=== PATIENT | male | born 1960 | race Caucasian/White ===

== ENCOUNTER 2018-01-24 11:26 | Inpatient (IN) | payer BC ==
[~2018-01-24] VITALS: Ht 177.8 cm; Wt 105.6 kg
--- NOTE | ~2018-01-24 | EKG ---
[address] [place] [address] ELECTROCARDIOGRAM REPORT Name: NEDA LYNN Room #: 210-P ADM IN M.R.#: [id number] Admission: 01/24/18 Attend Phys: Blanche Engle Discharge: Date of : 60 Report #: [id number] THIS REPORT FOR: //name// [facility] Test Date: 2018-01-24 Test Time: 15:20:22 Pat Name: NEDA LYNN Department: Room: 210 P Gender: M Refuse Collector: Oscar RANKIN : 1960 Requested By: Norman Harrell Order Number: [id number] MD: Norman Harrell Measurements Intervals [place] Rate: 60 P: 22 IA: 233 QRS: 31 QRSD: 96 T: 35 QT: 400 QTc: 400 Interpretive Statements Sinus rhythm Prolonged IA interval Abnormal R-wave progression, early transition Compared to ECG 01/24/2018 11:24:34 high lateral injury pattern no longer present Electronically Signed On 01-25-2018 10:53:23 CDT by Norman Harrell [email or web address] <ELECTRONICALLY SIGNED> By: Norman Harrell MD, [facility] 01/25/18 1053 1520 1520 Norman Harrell MD, [facility] /EPI
--- NOTE | ~2018-01-24 | EKG ---
[address] [place] [address] ELECTROCARDIOGRAM REPORT Name: NEDA LYNN Room #: 210-P ADM IN M.R.#: [id number] Admission: 01/24/18 Attend Phys: Blanche Engle Discharge: Date of : 60 Report #: [id number] THIS REPORT FOR: //name// [facility] ED Test Date: 2018-01-24 Test Time: 11:24:34 Pat Name: NEDA LYNN Department: Room: 210 Gender: M Tile And Marble Installer: MZOOK : 1960 Requested By: Halina Rodríguez Order Number: [id number] MD: Norman Harrell Measurements Intervals [place] Rate: 70 P: 19 MA: 216 QRS: 4 QRSD: 101 T: -28 QT: 394 QTc: 426 Interpretive Statements Sinus rhythm Prolonged MA interval Abnormal R-wave progression, early transition High lateral myocardial infarction, acute No previous ECG available for comparison Electronically Signed On 01-24-2018 14:58:23 CDT by Norman Harrell [email or web address] <ELECTRONICALLY SIGNED> By: Norman Harrell MD, [facility] 01/24/18 1458 1124 1124 Norman Harrell MD, [facility] /EPI
--- NOTE | ~2018-01-24 | CATHLAB ---
[facility] [address] [place] [address] INVASIVE PROCEDURE REPORT Name: LEAHNEDA Room #: 210-P ADM IN M.R.#: [id number] Admission: 01/24/18 Attend Phys: Blanche Rae Discharge: Date of : 60 Date of Service: 01/24/18 1647 Report #: [id number] THIS REPORT FOR: //name// APPROVED REPORT Study performed: 01/24/2018 11:47:58 Patient Details Patient Status: ED Room #: The patient is a 57 year-old male Event Personnel Norman Harrell Ballast Regulator Operator, Amor Yeung RN, Neda Santamaria RN RN, Andi Chavez Hand Ornament Maker, Zenaida Samuel Monitor Procedures Performed Left Heart Cath w/LT VGram [id number] LHCLV NAEEM Revasc AMI Total/Sub Single OM C9606 AMIREVSING Indication STEMI (>0 to less than or equal to 6 hours), Chest pain Risk Factors Chronic Lung DiseaseHypercholesterolemia, Tobacco History () Procedure Narrative The both groins was infiltrated with 1% Lidocaine subcutaneous anesthesia. A PINNACLE 6FR Sheath #[id number] sheath was inserted into the RFA^. Coronary angiography was performed using coronary diagnostic catheters. The right coronary system was accessed and visualized with a JR46FR 3DRC #[id number] catheter. The left coronary system was accessed and visualized with a JL4 catheter. The left ventricle was accessed and visualized with a PIGTAIL catheter. Left ventricular/Aortic Valve gradient assessed via catheter pullback. Left ventriculogram was performed in 30 degree projection. Closure device was deployed with a 6 Fr MYNXGRIP 6/7F #[id number]. The patient tolerated the procedure well and there were no complications associated with the procedure. There was no hematoma. Intraoperative Conscious Sedation Sedation start time: 12.07 Case end Time: 14.12 Fentanyl 100 mcg Versed 2 mg [facility] [place] [address] INVASIVE PROCEDURE REPORT Name: NEDA LYNN Room #: 210-P [facility] IN .R.#: [id number] Admission: 01/24/18 Attend Phys: Blanche Rae Discharge: Date of : 60 Date of Service: 01/24/18 1647 Report #: [id number] Fluoro Time: 22.41 minutes Dose: DAP 06321.80 cGycm2 3300 mGy Contrast Type and Amount: Visipaque 490 ml Coronary Angiography The patient's coronary anatomy is right dominant. Diagnostic Cath Left Main Normal left main LAD The LAD was a large vessel that extended to the apex. The proximal LAD exhibited an ectatic, aneurysmal segment following which there was a 60-70% stenosis. Just after the first septal perforating branch was a 30-40% stenosis. Diagonal 1 The first diagonal branch was moderately large with a 60-70% ostial stenosis. The diagonal branch had its origin near the distal margin of the aneurysmal LAD segment. Diagonal 2 The second diagonal branch was moderate to small and angiographically normal Circumflex The mid circumflex was occluded in its midportion Right Coronary The right coronary was dominant. There is a small proximal aneurysm. The mid LAD exhibited variable 30-40% plaquing R PDA The posterior descending exhibited mild 20-30% plaquing RPLV The posterior lateral branch was large in caliber with a 60-70% ostial stenosis Left Ventriculography The left ventricle is normal in size with normal contractility. The left ventricular ejection fraction is estimated to be 50-55%. Left ventricular wall motion abnormalities are not present. There is no mitral insufficiency. IVUS A Guide Catheter was used to engage the LAUNCHER 6FR EBU 4 #[id number] ostium. A Luge Wire .014 x 182CM #[id number] was used. Hemodynamics The aortic pressure is 131/67 mmHg with a mean of 91 mmHg. The left ventricular pressure is 111/17 mmHg with a mean of mmHg. The left ventricular end diastolic pressure is 17 mmHg. PCI Technique Lesion Anticoagulation was achieved with Heparin, Integrilin. Patient was preloaded with Brillinta. Percutaneous coronary intervention was performed on the mid circumflex extending into first obtuse marginal [address] [address] INVASIVE PROCEDURE REPORT Name: NEDA LYNN Room #: 210-P ADM IN M.R.#: [id number] Admission: 01/24/18 Attend Phys: Blanche Rae Discharge: Date of : 60 Date of Service: 01/24/18 1647 Report #: [id number] branch segment. The lesion stenosis prior to intervention was 100% with MARGARET 0 flow. A LAUNCHER 6FR EBU 4 #[id number] Guide Catheter was used to engage the left main ostium. A Luge Wire .014 x 182CM #[id number] Interventional Guidewire was used to cross the lesion. BALLOON DILATION A Balloon catheter Euphora RX 3.0 x 15 #[id number] was inserted and inflated up to 8.00atm for 30seconds. Repeat angiography revealed the following post-dilatation results: long, diffuse stenosis of OM1, very high grade mid circumflex stenosis. Additional Inflation: 8.00atm for 21seconds. Additional Inflation: 8.00atm for 28seconds. STENT DEPLOYMENT A drug-eluting stent RESOLUTE RX 3.0 X 26 #[id number] was inserted and inflated up to 14atm for 30seconds. Repeat angiography revealed the following post-stent deployment results: 0% residual, restored flow. POST STENT DEPLOYMENT BALLOON DILATION A Balloon catheter TREK NC RX 3.5 X 12 #[id number] was inserted and inflated up to 20atm for 30seconds. Repeat angiography revealed the following post-dilatation results: 0% residual. Additional Inflation: 12atm for 31seconds. Final angiography reveals 0 % stenosis with MARGARET 3 flow. PCI Technique Lesion A LAUNCHER 6FR EBU 4 #[id number] Guide Catheter was used to engage the ostium. A Luge Wire .014 x 182CM #[id number] Interventional Guidewire was used to cross the lesion. STENT DEPLOYMENT A drug-eluting stent RESOLUTE RX 3.5 X 15 #[id number] was inserted and inflated up to 14atm for 25seconds. POST STENT DEPLOYMENT BALLOON DILATION A Balloon catheter TREK NC RX 3.5 X 8 #[id number] was inserted and inflated up to 18atm for 26seconds. Additional Inflation: 18atm for 19seconds. Conclusion 1. Normal global systolic function. EF 55%. No mitral insufficiency 2. Normal left main 3. 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 Occlusion of mid circumflex treated with 3.5 x 15 Resolute, then extending in sequence into large OM1 3.0 x 26mm Resolute, both post-dilated with 3.5mm NC bolloon 5. RCA dominant. 30-40% mid plaquing. PV branch with osteal 60-70% stenosis. Mild PDA osteal disease Recommendations Smoking Cessation Cardiac Rehabilitation Referral Aggressive Medical Therapy Medications Administered Aspirin (any) Beta Jeison (any) Statin (any) Ticagrelor Cardiac Rehabilitation Referral Smoking Cessation <ELECTRONICALLY SIGNED> By: Norman Harrell MD, FACC 01/24/181646 46 46 Norman Harrell MD, FACC /INF
--- NOTE | ~2018-01-24 | EKG ---
[address] [place] [address] ELECTROCARDIOGRAM REPORT Name: NEDA LYNN Room #: 210-P ADM IN M.R.#: [id number] Admission: 01/24/18 Attend Phys: Blanche Engle Discharge: Date of : 60 Report #: [id number] THIS REPORT FOR: //name// [facility] Test Date: 2018-01-25 Test Time: 06:45:31 Pat Name: NEDA LYNN Department: Room: 210 P Gender: M Windows Server Administrator: YG : 1960 Requested By: Dilia Jim Order Number: [id number] MD: Norman Harrell Measurements Intervals [place] Rate: 67 P: 28 MA: 211 QRS: 21 QRSD: 92 T: 59 QT: 407 QTc: 430 Interpretive Statements Sinus rhythm Prolonged MA interval Abnormal R-wave progression, early transition Compared to ECG 01/24/2018 11:24:34 No significant change was found Electronically Signed On 01-25-2018 11:00:12 CDT by Norman Harrell [email or web address] <ELECTRONICALLY SIGNED> By: Norman Harrell MD, [facility] 01/25/18 1100 Norman Harrell MD, [facility] /EPI
--- NOTE | ~2018-01-24 | 2DMMODE ---
[facility] [address] [address] 2 D/M-MODE ECHOCARDIOGRAM Name: NEDA LYNN Room #: 210-P ADM IN M.R.#: [id number] Admission: 01/24/18 Attend Phys: Blanche Rae Discharge: Date of : 60 Date of Service: 01/25/18 1305 Report #: [id number] THIS REPORT FOR: //name// APPROVED REPORT Study performed: 01/25/2018 11:03:42 EXAM: Comprehensive 2D, Doppler, and color-flow Echocardiogram Patient Location: Bedside Room #: 210 Status: on-call BSA: 2.26 HR: 67 bpm BP: 122/84 mmHg Rhythm: NSR Other Information Study Quality: Good Risk Factors: Cardiac Risk Factors: Smoking, Hyperlipidemia Indications CAD STEMI 2D Dimensions LVEF(%): 53.60 (>50%) IVSd: 8.51 (7-11mm) LVOT Diam: 21.00 (18-24mm) LVDd: 48.06 mm PWd: 9.60 (7-11mm) Ascending Ao: 32.60 (22-36mm) LVDs: 34.76 (25-40mm) Aortic Root: 27.16 mm LV Single Plane 4CH: 50.77 % LV Single Plane 2CH: 52.30 % Bey's LVEF: 51.53 % Biplane EF: 52.7 % Volumes Left Atrial Volume (Systole) Single Plane 4CH: 33.41 mL Single Plane 2CH: 40.10 mL LA ESV Index: 18.00 mL/m2 Aortic Valve AoV Peak Omar.: 1.49 m/s [facility] [address] [address] 2 D/M-MODE ECHOCARDIOGRAM Name: NEDA LYNN Room #: 210-P [facility] IN ..#: [id number] Admission: 01/24/18 Attend Phys: Blanche Rae Discharge: Date of : 60 Date of Service: 01/25/18 1305 Report #: [id number] AO Peak Gr.: 8.82 mmHg LVOT Max P.58 mmHg LVOT Max V: 0.80 m/s HILARY Vmax: 1.83 cm2 Mitral Valve E/A Ratio: 1.1 MV Decel. Time: 202.01 ms MV E Max Omar.: 0.77 m/s MV A Omar.: 0.67 m/s MV PHT: 58.58 ms IVRT: 64.59 ms Pulmonary Valve PV Peak Omar.: 0.84 m/s PV Peak Gr.: 2.87 mmHg Pulmonary Vein P Vein S: 0.52 m/s P Vein A: 0.20 m/s P Vein D: 0.58 m/s P Vein A Dur.: 114.2 msec P Vein S/D Ratio: 0.90 Tricuspid Valve RAP Estimate: 7.00 mmHg Left Ventricle The left ventricle is normal size. There is normal left ventricular wall thickness. Left ventricular systolic function is normal. Minimal lateral wall hypokinesis LVEF is 60%. Grade II - pseudonormal filling dynamics. Right Ventricle The right ventricle is normal size. The right ventricular systolic function is normal. Atria The left atrium size is normal. The right atrium size is normal. Aortic Valve The aortic valve is mildly calcified No aortic regurgitation is present. There is no aortic valvular stenosis. Mitral Valve The mitral valve is normal in structure. Trace mitral regurgitation. No evidence of mitral valve stenosis. Tricuspid Valve [facility] [address] [place] [address] 2 D/M-MODE ECHOCARDIOGRAM Name: NEDA LYNN Room #: 210-P [facility] IN M.R.#: [id number] Admission: 01/24/18 Attend Phys: Blanche Rae Discharge: Date of : 60 Date of Service: 01/25/18 1305 Report #: [id number] The tricuspid valve is normal in structure. There is no tricuspid valve regurgitation noted. Pulmonic Valve The pulmonary valve is normal in structure. There is no pulmonic valvular regurgitation. Great Vessels The aortic root is normal in size. IVC is normal in size and collapses >50% with inspiration. Pericardium There is no pericardial effusion. <Conclusion> Left ventricular systolic function is normal. Minimal lateral wall hypokinesis LVEF is 60%. Grade II - pseudonormal filling dynamics. The aortic valve is mildly calcified. No aortic regurgitation or stenosis The mitral valve is normal in structure. Trace mitral regurgitation. Pulmonary artery pressure could not be reliably ascertained There is no pericardial effusion. <ELECTRONICALLY SIGNED> By: Norman Harrell MD, [facility] 01/25/18 1305 1305 1305 Norman Harrell MD, FAC /INF
--- NOTE | ~2018-01-24 | EKG ---
[place] [address] [address] [facility] [place] [address] ELECTROCARDIOGRAM REPORT Name: NEDA LYNN Room #: 210- DIS IN M.R.#: [id number] Admission: 01/24/18 Attend Phys: Blanche Engle Discharge: 01/26/18 Date of : 60 Report #: [id number] THIS REPORT FOR: //name// [facility] Test Date: 2018-01-25 Test Time: 12:03:47 Pat Name: NEDA LYNN Department: Room: 210 Gender: M Entry Rep: YG : 1960 Requested By: Norman Harrell Order Number: [id number] MD: Norman Harrell Measurements Intervals [place] Rate: 75 P: 25 MA: 210 QRS: 28 QRSD: 91 T: 87 QT: 384 QTc: 429 Interpretive Statements Sinus rhythm Posterior infarct, old Compared to ECG 01/25/2018 06:45:31 No significant change was found Electronically Signed On 01-26-2018 13:48:00 CDT by Norman Harrell [email or web address] <ELECTRONICALLY SIGNED> By: Norman Harrell MD, [facility] 01/26/18 1348 1203 120 Norman Harrell MD, [facility] /EPI
[2018-01-24 11:27] VITALS: BP 116/74
[2018-01-24 11:46] LABS: ABSOLUTE NEUTROPHILS 10.4 thou/uL (1.4-8.2); BASOPHILS 0.5 % (0.0-2.0); EOSINOPHILS 0.8 % (0.0-3.0); HEMATOCRIT 51.2 % (42.0-52.0); LYMPHOCYTES 11.9 % (24.0-44.0); MCH 29.5 pg (26.0-34.0); MCHC 35.2 g/dL (28.0-37.0); MCV 83.6 fL (80.0-100.0); PLATELET COUNT 149 thou/uL (150-400); POLYS 83.8 % (36.0-66.0); RBC 6.12 mil/uL (4.50-6.00); RDW 13.5 % (10.5-14.5); WBC 12.4 thou/uL (4.0-11.0)
[2018-01-24 11:54] LABS: CALCIUM 9.2 mg/dL (8.5-10.1); CREATININE 1.2 mg/dL (0.7-1.3)
[2018-01-24 12:02] VITALS: BP 115/70
[2018-01-24 12:04] LABS: ALBUMIN 4.1 g/dL (3.4-5.0); TOTAL BILIRUBIN 0.6 mg/dL (<0.1-1.0); TOTAL PROTEIN 7.6 g/dL (6.4-8.2); TROPONIN-I 0.06 ng/mL (<0.06)
[2018-01-24 21:10] VITALS: BP 121/81
[2018-01-24 23:56] VITALS: BP 134/88
[2018-01-25 03:45] VITALS: BP 133/85
[2018-01-25 05:14] LABS: HEMATOCRIT 44.9 % (42.0-52.0); MCH 28.9 pg (26.0-34.0); MCHC 34.3 g/dL (28.0-37.0); MCV 84.2 fL (80.0-100.0); RBC 5.34 mil/uL (4.50-6.00); RDW 13.8 % (10.5-14.5); WBC 14.3 thou/uL (4.0-11.0)
[2018-01-25 05:24] LABS: CHOLESTEROL 176 mg/dL (<200); HDL CHOLESTEROL 25 mg/dL (>40); LDL CHOLESTEROL 83 mg/dL (<100); TRIGLYCERIDE 340 mg/dL (<150); VLDL 68 mg/dL (<40)
[2018-01-25 05:29] LABS: HEMOGLOBIN 15.4 gm/dL (14.0-18.0)
[2018-01-25 05:32] LABS: SERUM ASSESSMENT Clear
[2018-01-25 07:14] VITALS: BP 122/84
[2018-01-25 08:01] VITALS: BP 122/84
[2018-01-25 11:36] VITALS: BP 123/81
[2018-01-25 16:44] VITALS: BP 129/69
[2018-01-25 19:11] LABS: GLYCOHEMOGLOBIN (HGB A1C) 5.2 % (4.8-5.6)
[2018-01-25 19:50] VITALS: BP 121/69
[2018-01-26 03:50] VITALS: BP 126/70
[2018-01-26 07:50] VITALS: BP 132/82
[2018-01-26 08:47] VITALS: BP 132/82
[2018-01-26] MEDS ORDERED: METOPROLOL SUCC50 MG PO (10:18)
[2018-01-26] MEDS ORDERED: ATORVASTATIN CA40 MG PO (10:18)
[2018-01-26] MEDS ORDERED: BRILINTA90 MG PO (10:18)
[2018-01-26] MEDS ORDERED: ASPIR 8181 MG PO (10:19)
[2018-01-26] MEDS ORDERED: METFORMIN HCL500 MG PO (10:19)
[2018-01-26 10:33] VITALS: BP 132/82
[2018-01-26 11:28] VITALS: BP 132/82
== END 2018-01-26 11:35 | disposition home or self-care (01) | DRG 247 ==
LOC: ER 11:26 → EROBS 12:02 → 2N 12:03
PROVIDERS: Hospitalist; Internal Medicine; Nurse Practitioner Adult Health; Physician Assistant
PROC: 027135Z Dilation of Coronary Artery, Two Arteries with Two Drug-eluting Intraluminal Devices, Percutaneous Approach (ICD-10-PCS; principal; 2018-01-24)
PROC: B2111ZZ Fluoroscopy of Multiple Coronary Arteries using Low Osmolar Contrast (ICD-10-PCS; principal; 2018-01-24)
PROC: 4A023N7 Measurement of Cardiac Sampling and Pressure, Left Heart, Percutaneous Approach (ICD-10-PCS; principal; 2018-01-24)
PROC: B2151ZZ Fluoroscopy of Left Heart using Low Osmolar Contrast (ICD-10-PCS; principal; 2018-01-24)
PROC: B241ZZ3 Ultrasonography of Multiple Coronary Arteries, Intravascular (ICD-10-PCS; principal; 2018-01-24)
DX: I21.29 ST elevation (STEMI) myocardial infarction involving other sites (principal); I47.2 Ventricular tachycardia; E78.5 Hyperlipidemia, unspecified; E78.00 Pure hypercholesterolemia, unspecified; E11.65 Type 2 diabetes mellitus with hyperglycemia; I10 Essential (primary) hypertension; J44.9 Chronic obstructive pulmonary disease, unspecified; F17.210 Nicotine dependence, cigarettes, uncomplicated; E66.9 Obesity, unspecified; Z60.2 Problems related to living alone; F32.9 Major depressive disorder, single episode, unspecified; Z68.33 Body mass index [BMI] 33.0-33.9, adult; Z79.82 Long term (current) use of aspirin; Z79.899 Other long term (current) drug therapy; Z90.49 Acquired absence of other specified parts of digestive tract; Z79.84 Long term (current) use of oral hypoglycemic drugs; Z82.49 Family history of ischemic heart disease and other diseases of the circulatory system; Z71.6 Tobacco abuse counseling
CPT/HCPCS: 10194